=== PATIENT | female | born 1980 | race Caucasian/White ===

== ENCOUNTER 2018-02-01 15:00 | Inpatient (IN) | END 2018-02-04 22:35 | disposition home or self-care (01) | DRG 744 ==

== ENCOUNTER 2018-04-15 17:32 | Emergency (ER) | END 2018-04-15 20:14 | disposition home or self-care (01) ==

== ENCOUNTER 2019-02-15 17:37 | Emergency (ER) | payer MEDICAID, OTHER ==
[~2019-02-15] VITALS: Ht 162.6 cm; Wt 61.1 kg
[~2019-02-15 17:37] MED LIST: CEPH-443 PO; DOCU-144 PO; FER325 PO; IBUP-1542 PO
[2019-02-15 17:52] VITALS: Ht 162.6 cm; Wt 61.1 kg
--- NOTE | 2019-02-15 19:15 | ERD ---
ER Documentation Chief Complaint Chief Complaint dizziness x2wks, headache and nausea x1wk HPI 39-year-old woman complaining of recent dizziness, she does have a history of anemia and wants to make sure her hemoglobin is not low. She denies blood per rectum or melena, no fevers or chills, no chest pain or shortness of breath. Patient does complain of recent dysuria. ROS All systems reviewed and are negative except as per history of present illness. Medications Home Meds Active Scripts Cephalexin* (Keflex*) 500 Mg Capsule, 500 MG PO QID for 5 Days, CAP Prov:LIZ HERNANDEZ MD 02/15/19 Ibuprofen* (Motrin*) 600 Mg Tab, 600 MG PO Q6H PRN for PAIN, #20 TAB Prov:JOSEFA MARCANO MD 04/15/18 Cephalexin* (Keflex*) 500 Mg Capsule, 500 MG PO QID for 5 Days, CAP Prov:JOSEFA MARCANO MD 04/15/18 Docusate Sodium* (Colace*) 100 Mg Capsule, 100 MG PO BID, #60 CAP Prov:ESTRELLA SOTELO S. 02/04/18 Ferrous Sulfate* (Ferrous Sulfate*) 325 Mg Tabec, 325 MG PO TID, #90 TAB 3 Refills Prov:ESTRELLA SOTELO S. 02/04/18 Allergies Allergies: Coded Allergies: No Known Allergies (Verified Allergy, Unknown, 02/01/18) PMhx/Soc History of anemia due to abnormal uterine bleeding, endometrial polyp, multiple myeloma History of Surgery: Yes (csection ) Hx Neurological Disorder: No Hx Respiratory Disorders: No Hx Cardiac Disorders: No Hx Psychiatric Problems: No Hx Miscellaneous Medical Probl: No Hx Alcohol Use: No Hx Substance Use: No Hx Tobacco Use: No FmHx Family History: No diabetes Physical Exam Vitals Vital Signs Date Temp Pulse Resp B/P (MAP) Pulse Ox O2 O2 Flow FiO2 Time Delivery Rate 02/15/19 88 24 112/82 97 Room Air 21:30 (92) 02/15/19 98.9 86 18 115/63 97 17:52 (80) Physical Exam GENERAL: Well-developed, well-nourished, well-hydrated, in no apparent distress, looks nontoxic in appearance HEENT: Moist mucous membranes, pink conjunctiva, no cervical spine tenderness or step-off deformities, no goiter, no jaundice or icterus, extraocular movements intact without pain. No submandibular induration, and no pharyngeal erythema NEURO: Alert and oriented 3, cranial nerves II through XII intact bilaterally, pupils equal round reactive to light, no focal deficits or facial asymmetry, sensation intact distally Strength 5/5 in upper and lower extremities bilaterally CARDIAC: Regular rate and rhythm, no murmurs rubs or gallops LUNGS: Clear bilaterally no wheezing crackles or stridor ABDOMEN: Soft nontender, no guarding, no rigidity, no rebound, no psoas sign no obturator sign. Normoactive bowel sounds SKIN: Warm and dry to touch, no abrasions, contusions, or hematomas, no lacerations, no ecchymosis, no target lesions, and without ulcers EXTREMITIES: No clubbing cyanosis or edema, calves are bilaterally symmetrical, no Homans sign, no popliteal cord sign. Distal pulses equal and bilateral PSYCH: Normal affect without agitation or irritability Result Diagram: 02/15/19193202/15/191932 Results 24 hrs Laboratory Tests Test 02/15/19 19:33 02/15/19 19:38 White Blood Count 12.7 10^3/ul Red Blood Count 3.85 10^6/ul Hemoglobin 10.3 g/dl Hematocrit 32.5 % Mean Corpuscular Volume 84.4 fl Mean Corpuscular Hemoglobin 26.8 pg Mean Corpuscular Hemoglobin Concent 31.7 g/dl Red Cell Distribution Width 16.0 % Platelet Count 222 10^3/UL Mean Platelet Volume 13.8 fl Immature Granulocytes % 0.300 % Neutrophils % 61.1 % Segmented Neutrophils % (Manual) 66 % Lymphocytes % 28.5 % Lymphocytes % (Manual) 28 % Reactive Lymphocytes % (Manual) 1 % Monocytes % 7.0 % Monocytes % (Manual) 3 % Eosinophils % 2.5 % Eosinophils % (Manual) 1 % Basophils % 0.6 % Basophils % (Manual) 1 % Nucleated Red Blood Cells % 0.0 /100WBC Immature Granulocytes # 0.040 10^3/ul Neutrophils # 7.7 10^3/ul Lymphocytes (Manual) 3.5 10^3/ul Lymphocytes # 3.6 10^3/ul Reactive Lymphocytes # 0.1 10^3/ul Monocytes # 0.9 10^3/ul Monocytes # (Manual) 0.3 10^3/ul Eosinophils # 0.3 10^3/ul Basophils # 0.1 10^3/ul Basophils # (Manual) 0.1 10^3/ul Nucleated Red Blood Cells # 0.0 10^3/ul Giant Platelets 9 % Platelet Morphology Comment @See below Urine Color YELLOW Urine Clarity SLIGHTLY CLOUDY Urine pH 5.0 Urine Specific [place] 1.026 Urine Ketones TRACE mg/dL Urine Nitrite NEGATIVE mg/dL Urine Bilirubin NEGATIVE mg/dL Urine Urobilinogen NEGATIVE mg/dL Urine Leukocyte Esterase 1+ Sunita/ul Urine Microscopic RBC 1 /HPF Urine Microscopic WBC 1 /HPF Urine Squamous Epithelial Cells FEW /HPF Urine Mucus FEW /HPF Urine Hemoglobin NEGATIVE mg/dL Urine Glucose NEGATIVE mg/dL Urine Total Protein NEGATIVE mg/dl Sodium Level 138 mmol/L Potassium Level 3.7 mmol/L Chloride Level 102 mmol/L Carbon Dioxide Level 26 mmol/L Anion Gap 10 Blood Urea Nitrogen 13 mg/dl Creatinine 0.47 mg/dl Est Glomerular Filtrat Rate mL/min > 60 mL/min Glucose Level 95 mg/dl Calcium Level 9.4 mg/dl Total Bilirubin 0.3 mg/dl Direct Bilirubin 0.00 mg/dl Indirect Bilirubin 0.3 mg/dl Aspartate Amino Transf (AST/SGOT) 26 IU/L Alanine Aminotransferase (ALT/SGPT) 13 IU/L Alkaline Phosphatase 104 IU/L Total Protein 8.4 g/dl Albumin 4.3 g/dl Globulin 4.10 g/dl Albumin/Globulin Ratio 1.04 Lipase 148 U/L POC Beta HCG, Qualitative NEGATIVE Current Medications Medications Dose Sig/Tarik Start Time Status Last (Trade) Ordered Route PRN Stop Time Admin Dose Reason Admin Sodium 1,000 ml @ Q1H STAT 02/15/19 DC 02/15/19 Chloride 1,000 mls/hr IV 19:26 02/15/19 19:51 20:25 Ondansetron 4 mg ONCE STAT 02/15/19 DC 02/15/19 HCl (Zofran IV 19:26 02/15/19 19:50 Inj) 19:28 Ceftriaxone 50 ml @ ONCE ONCE 02/15/19 DC 02/15/19 Sodium 100 mls/hr IVPB 21:30 02/15/19 21:43 21:59 Procedures/MDM IV line was established patient was placed on potline monitor rhythm strip revealed a sinus rhythm at about 80 bpm with upright P and T waves. Patient was afebrile EKG performed, read by me: 85 bpm, normal sinus rhythm, normal axis, no acute ST segment changes, narrow QRS complex, with good R-wave progression in precordial leads. CBC revealed mild anemia with a hemoglobin of 10, electrolytes are unremarkable, liver function tests normal, urinalysis positive for infection. I administered ceftriaxone 1 g IV x1 for acute UTI Patient's vital signs are normal and she no longer feels dizzy, I suspect her symptoms are due to acute UTI and she will be discharged with a prescription for antibiotics. Differential diagnoses considered, included but not limited to acute coronary syndrome, pulmonary embolism, aortic dissection, abdominal aortic aneurysm, sepsis, stroke, meningitis, encephalitis, pneumonia, appendicitis, cholecystitis, bowel obstruction, pyelonephritis, nephrolithiasis, cystitis, as well as metabolic, hematologic, and electrolyte abnormalities. As well as abscess, cellulitis, fractures, and dislocations. Patient feels much better at this time, and vital signs are normal, symptoms have improved. I did give strict instructions to return to the ED if symptoms continue or worsen, patient will otherwise follow-up with primary care physician. Patient understood instructions and agreed to plan. Disclaimer: Inadvertent spelling and grammatical errors are likely due to EHR/dictation software use and do not reflect on the overall quality of patient care. Also, please note that the electronic time recorded on this note does not necessarily reflect the actual time of the patient encounter. Departure Diagnosis: Primary Impression: Dizziness Additional Impressions: Anemia Anemia type: unspecified type Qualified Codes: D64.9 - Anemia, unspecified Acute UTI Condition: Good LIZ HERNANDEZ MD Feb 15, 2019 19:15
[2019-02-15] MEDS ORDERED: SOD CHLORIDE 0.9% 1,000 ML IV STA (19:26)
[2019-02-15] MEDS ORDERED: ONDANSETRON 4 MG INJ IV STA (19:26)
[2019-02-15] MEDS ORDERED: CEFTRIAXONE 1 GM/50 ML (PMX) 50 ML IVPB ONE (21:30)
[2019-02-15] MEDS ORDERED: CEPH-443 PO (21:44)
[2019-02-15] MEDS ORDERED: LORA10CA PO (22:12)
[2019-02-15] MEDS ORDERED: ACET-141 PO (22:12)
[2019-02-15 22:36] VITALS: BP 108/79; PULSE 89; RESP 18
== END 2019-02-15 22:37 | disposition home or self-care (01) ==
LOC: E/R 17:37
DX: D64.9 Anemia, unspecified (principal); N39.0 Urinary tract infection, site not specified
CPT/HCPCS: 36415; 80053; 81001; 81025; 83690; 85025; 86850; 86870; 86900; 86901; 86902; 93005; 96374; 96375; J0696; J2405; J7030; Z7502

== ENCOUNTER 2019-03-08 08:00 | Emergency (ER) | payer OTHER ==
[~2019-03-08] VITALS: Ht 152.4 cm; Wt 60.4 kg
[~2019-03-08 08:00] MED LIST changes: +ACET-141 PO; -FER325 PO; -IBUP-1542 PO; +LORA10CA PO
[2019-03-08 08:03] VITALS: Ht 152.4 cm; Wt 60.4 kg
[2019-03-08] MEDS ORDERED: PHEN-538 PO (09:29)
[2019-03-08] MEDS ORDERED: CEPH500C PO (09:29)
[2019-03-08 09:36] VITALS: BP 136/89; PULSE 76; RESP 18
--- NOTE | 2019-03-08 14:29 | ERD ---
ER Documentation Chief Complaint Chief Complaint painful urination x3 days HPI History of Present Illness: 39-year-old female with a past medical history coming in today with complaint of painful urination for 3 days. Associated symptoms include suprapubic pain. Patient denies any other associated symptoms. Patient reports a urinary tract infection approximately 1 month ago and when she was seen at [facility] emergency department and given IV antibiotics with cephalexin to go home. Patient reports symptoms completely went away but she noted symptoms returning 3 days ago. At home pharmacological/nonpharmacological treatment for symptoms: denies Denies social concerns; Denies recent foreign travel ROS All systems reviewed and are negative except as per history of present illness. Medications Home Meds Active Scripts Phenazopyridine Hcl* (Pyridium*) 200 Mg Tab, 200 MG PO TID PRN for URINARY PAIN, #6 TAB Prov:TYRELL REDD NP 03/08/19 Cephalexin* (Cephalexin*) 500 Mg Capsule, 500 MG PO Q6 for urine infection for 7 Days, #28 CAP Prov:TYRELL REDD NP 03/08/19 Cephalexin* (Keflex*) 500 Mg Capsule, 500 MG PO QID for 5 Days, CAP Prov:LIZ HERNANDEZ MD 02/15/19 Docusate Sodium* (Colace*) 100 Mg Capsule, 100 MG PO BID, #60 CAP Prov:ESTRELLA SOTELO 02/04/18 Reported Medications Loratadine* (Claritin*) 10 Mg Capsule, 10 MG PO DAILY, CAP 02/15/19 Acetaminophen* (Acetaminophen*) 500 MG Extra Strength Tablet, 500 MG PO Q4H PRN for PAIN AND OR ELEVATED TEMP, TAB 02/15/19 Allergies Allergies: Coded Allergies: No Known Allergies (Verified Allergy, Unknown, 02/15/19) PMhx/Soc History of Surgery: Yes (csection ) Hx Neurological Disorder: No Hx Respiratory Disorders: No Hx Cardiac Disorders: No Hx Psychiatric Problems: No Hx Miscellaneous Medical Probl: Yes (ANEMIA ) Hx Alcohol Use: No Hx Substance Use: No Hx Tobacco Use: No FmHx Family History: diabetes; No coronary disease Physical Exam Vitals Vital Signs Date Temp Pulse Resp B/P (MAP) Pulse Ox O2 O2 Flow FiO2 Time Delivery Rate 03/08/19 97.6 76 18 136/89 100 Room Air 09:36 (105) 03/08/19 97.6 79 18 138/92 100 08:03 (107) Physical Exam Const: No acute distress Head: Atraumatic Eyes: Normal Conjunctiva ENT: Normal External Ears, Nose and Mouth. Neck: Full range of motion. No meningismus. Resp: Clear to auscultation bilaterally Cardio: Regular rate and rhythm, no murmurs Abd: Soft, suprapubic tenderness, non distended. Normal bowel sounds Skin: No petechiae or rashes Back: No midline or flank tenderness Ext: No cyanosis, or edema Neur: Awake and alert Psych: Normal Mood and Affect Results 24 hrs Laboratory Tests Test 03/08/19 08:25 Urine Color STRAW Urine Clarity CLOUDY Urine pH 8.0 Urine Specific [place] 1.006 Urine Ketones NEGATIVE mg/dL Urine Nitrite NEGATIVE mg/dL Urine Bilirubin NEGATIVE mg/dL Urine Urobilinogen NEGATIVE mg/dL Urine Leukocyte Esterase 3+ Sunita/ul Urine Microscopic RBC > 182 /HPF Urine Microscopic WBC > 182 /HPF Urine Bacteria MODERATE /HPF Urine Hemoglobin 3+ mg/dL Urine Glucose NEGATIVE mg/dL Urine Total Protein 1+ mg/dl Procedures/MDM ED course includes a thorough examination and history. Medications: -- Imaging: -- Labs: Urinalysis, gonorrhea chlamydia, urine culture Low suspicion for life-threatening medical emergency. Low suspicion for acute abdominal emergency that requires hospitalization or immediate surgical intervention. Low suspicion for need of IV or IM antibiotics. Patient afebrile and hemodynamically stable, tolerating p.o. fluids. Otherwise healthy patient presenting with constellation of symptoms likely representing uncomplicated urinary tract infection as characterized by history, physical exam findings. Will send off urine culture due to recurrent urinary tract infection. Urinary tract infection with RBCs, WBCs, hemoglobin, bacteria. No respiratory distress, otherwise relatively well appearing and nontoxic. Patient educated on diagnoses, prescriptions, follow-up care, return precautions. Strict return precautions given for worsening condition; questions answered discharge. Disposition for discharge with followup in 2 days with PCP/clinic. Departure Diagnosis: Primary Impression: Urinary tract infection Urinary tract infection type: site unspecified Hematuria presence: with hematuria Qualified Codes: N39.0 - Urinary tract infection, site not specified; R31.9 - Hematuria, unspecified Condition: Stable Patient Instructions: Understanding Urinary Tract Infections (UTIs) Ref[facility] Usted se briseno rhettho un examen mdico de control que le indica que no est en neisha condicin que requiera tratamiento urgente en el Departamento de Emergencia. Un estudio ms profundo y el tratamiento de montes condicin pueden esperar sin ningn riesgo hasta que usted sea atendida/o en el consultorio de montes mdico o neisha clnica. Es responsabilidad suya arreglar neisha char para el seguimiento del heather. MANEJO DE CONDICIONES NO URGENTES EN EL FUTURO 1) Si usted tiene un mdico de atencin primaria: Usted debera llamar a montes mdico de atencin primaria antes de venir al departamento de emergencia. Despus de las horas de consultorio, montes doctor o montes asociado/a est disponible por telfono. El mdico o enfermero de grecia en el servicio telefnico puede asesorarle por angel medio para atender el problema, o heather contrario se puede programar neisha char. 2) Si usted no tiene un mdico de atencin primaria: Llame al mdico o clnica de referencia que aparece abajo panfilo las horas de consultorio para hacer neisha char para que le vean. CLINICAS: [facility] [phone] [facility] [phone] [address] [facility] [phone] [address] [facility]. [facility] [phone] [facility]. [place] [phone] [facility]. [phone] [address] [facility]. [facility] ([facility]) Usted se briseno hecho un examen mdico de control que le indica que no est en neisha condicin que requiera tratamiento urgente en el Departamento de Emergencia. Un estudio ms profundo y el tratamiento de montes condicin pueden esperar sin ningn riesgo hasta que usted sea atendida/o en el consultorio de montes mdico o neisha clnica. Es responsabilidad suya arreglar neisha char para el seguimiento del heather. MANEJO DE CONDICIONES NO URGENTES EN EL FUTURO 1) Si usted tiene un mdico de atencin primaria: Usted debera llamar a montes mdico de atencin primaria antes de venir al departamento de emergencia. Despus de las horas de consultorio, montes doctor o montes asociado/a est disponible por telfono. El mdico o enfermero de grecia en el servicio telefnico puede asesorarle por angel medio para atender el problema, o heather contrario se puede programar neisha char. 2) Si usted no tiene un mdico de atencin primaria: Llame al mdico o condado institucions de referencia que aparece abajo panfilo las horas de consultorio para hacer neisha char para que le vean. SI USTED NO PUEDE PAGAR PARA ANTONIO UN MEDICO puede ir a: [facility] [address] [place] [address] [facility] [address] [place] [address] [facility] [address] [place] [address] PARA CYNDIE [facility] [address] [place], [place] [id number] Additional Instructions: Muchas gosai por permitirnos participar en montes cuidado. Montes naomie y seguridad es nuestra principal prioridad en [facility]. Es importante leer todas las instrucciones de hortencia y la educacin que se proporcionan en montes paquete de hortencia. Llame a montes mdico de atencin primaria MAANA para neisha char panfilo los prximos 2 a 4 parker y lleve toda la informacin y los medicamentos recetados. Llene las recetas y siga exactamente las instrucciones de la etiqueta. -Cefalexina es un antibitico; tome shawna medicamento nadya se indica en montes recet a. Debe completar todo el curso de tratamiento que figura en montes receta. [place] es muy importante porque se necesitan varios parker para eliminar las bacterias que causan la infeccin. -El piridio es un medicamento que ayuda con el dolor urinario. [place] shawna med icamento cada 8 horas panfilo los prximos 2 parker. Si los sntomas empeoran y montes proveedor no est disponible, regrese inmediat amente al Departamento de Emergencias. --- Thank you very much for allowing us to participate in your care. Your health and safety is our top priority at [facility]. It is important to read all discharge instructions and education provided in your discharge packet. Call your primary care doctor TOMORROW for an appointment during the next 2-4 days and bring all the information and medications prescribed. Have prescriptions filled and follow precisely the directions on the label. -Cephalexin is an antibiotic; take this medication as listed on your prescription. You must complete the entire course of treatment that is listed on your prescription this is very important because it takes a certain number of days to kill the bacteria that is causing the infection. -Pyridium is a medication that will help with urinary pain. Take this medication every 8 hours over the next 2 days. If the symptoms get worse and your provider is unavailable, return to the Emergency Department immediately. TYRELL REDD NP Mar 08, 2019 14:29
== END 2019-03-08 09:35 | disposition home or self-care (01) ==
LOC: FTE 08:00
DX: N39.0 Urinary tract infection, site not specified (principal)
CPT/HCPCS: 81001; 87086; 87591; 99283